=== PATIENT | female | born 1995 | race African-American/Black ===

== ENCOUNTER 2024-09-03 02:16 | Emergency (ER) | payer BC, SELFPAY ==
--- OUTSIDE RECORDS SUMMARY | 2024-09-03 02:19 | XMS_ITS | Clinical Summary ---
Author Organization [facility] Address [address] [place] [address] Care Team Providers Care Senior Genetic Counselor Name Role Phone Unavailable Primary Care Provider Unavailabl e Social History Tobacco Use Types Packs/Day Years Used Date Smoking Tobacco: Never Assessed Comments Unknown Sex and Gender Information Value Date Recorded Sex Assigned at Not on file Legal Sex Female 10:04 AM CDT Gender Identity Not on file Sexual Orientation Not on file Plan of Treatment Health Maintenance Due Date Last Done Comments Hepatitis C Virus (HCV) Screening 1993 Pap Smear 2014 Cervical Cancer Screening (CCS) 11/11/2023 HPV/Cotest 11/11/2023 Influenza Immunization (#1) 2023 SARS-COV-2 Immunization ( season) 2023 Respiratory Syncytial Virus (RSV) Immunization (Adult) (1 - 1-dose 75+ series) 2068 Hepatitis B Immunization Completed 995, 01/29/1994, 1993 DTaP/Tdap/Td Immunization Discontinued 2016, 12/07/2001, 09/03/1998, Additional history exists TdaP Immunization Completed 06/02/2016 Meningococcal Immunization (ACWY) Aged Out No longer eligible based on patient's age to complete this topic Pneumococcal Immunization Combined Aged Out No longer eligible based on patient's age to complete this topic Rotavirus Immunization Aged Out No lo nger eligible based on patient's age to complete this topic
--- OUTSIDE RECORDS SUMMARY | 2024-09-03 02:19 | XMS_ITS | Clinical Summary ---
Author Organization [facility] Address [address] [place] [address] Care Team Providers Care Travel Ot Name Role Phone Jamie Pena MD Primary Care Provider [phone] Allergies No known active allergies Medications No known medications Family History Medical History Relation Comments Cancer Father Stroke Mother Relation Status Comments Father Mother Social History Tobacco Use Types Packs/Day Years Used Date Smoking Tobacco: Never Passive Smoke Exposure: Never Smokeless Tobacco: Never Tobacco Cessation:Counseling Given: Not Answered Alcohol Use Standard Drinks/Week Comments Yes 0 (1 standard drink = 0.6 oz pur e alcohol) socially Comments Unknown Sex and Gender Information Value Date Recorded Sex Assigned at Not on file Legal Sex Female 7:53 PM CDT Gender Identity Not on file Sexual Orientation Not on file Last Filed Vital Signs Vital Sign Reading Time Taken Comments Blood Pressure 120/83 03/27/2022 1:14 PM LEGAL INTERNSHIP Pulse 80 03/27/2022 1:14 PM LEGAL INTERNSHIP Temperature 36.9 C (98.5 F) 03/27/2022 1:14 PM LEGAL INTERNSHIP Respiratory Rate 16 03/27/2022 1:14 PM LEGAL INTERNSHIP Oxygen Saturation 100% 03/27/2022 1:14 PM LEGAL INTERNSHIP Inhaled Oxygen Concentration - - Weight 59 kg (130 lb) 03/27/2022 1:14 PM LEGAL INTERNSHIP Height 157.5 cm (5' 2 ) 03/27/2022 1:14 PM LEGAL INTERNSHIP Body Mass Index 23.78 03/27/2022 1:14 PM LEGAL INTERNSHIP Plan of Treatment Health Maintenance Due Date Last Done Comments Cervical Cancer Screening Pa p Smear (Age 30 to 64) Every 3 Years 1993 Annual Physical 1996 Hepatitis C 11/11/2011 Hepatitis B Vaccines (1 of 3 - 19+ 3-dose series) 2012 Cervical Cancer Screening Pa p with HPV Testing (Age 30 to 64) Every 5 Years 11/11/2023 Cervical Cancer Screening with HPV 11/11/2023 COVID-19 Vaccine (1 - 2023-2 5 season) 2023 DTaP, Tdap and Td Vaccines ( 2 - Td or Tdap) 06/02/2026 06/02/2016 Pneumococcal Vaccine: Pediat rics (0 to 5 Years) and At-Risk Patients (6 to 49 Years) Aged Out 03/16/2014 No longer eligi ble based on patient's age to complete this topic HPV Vaccines Aged Out No longer eligi ble based on patient's age to complete this topic Meningococcal B Vaccine Aged Out No l onger eligible based on patient's age to complete this topic Meningococcal Vaccine Aged Out No ky matthew eligible based on patient's age to complete this topic RSV Immunizations Under 20 Months Aged Out No longer eligible based on patient's age to complete this topic Insurance Care Teams Travel Ot Relationship Specialty Start Date End Date Jamie Pena MD PCP - General 12/14/15
--- OUTSIDE RECORDS SUMMARY | 2024-09-03 02:19 | XMS_ITS | Referral Summary ---
Author Organization [facility] Address [address] [place] [id number] Care Team Providers Care Infusion Rn Name Role Phone Jamie Pena MD Primary Care Provider [phone] Jamie Pena MD Unavailable [phone] Allergies No known active allergies Medications vit-iron fum-folic ac 28 mg iron- 800 mcg tablet 1 tablet 1 Active acetaminophen (TylenoL) 325 mg tablet 650 mg 9 Active albuterol HFA (PROVENTIL HFA,VENTOLIN HFA,PROAIR HFA) 90 mcg/actuation inhaler INHALE 2 PUFFS EVERY 4 HOURS BY INHALATION ROUTE. 1 Active HYDROXYprogeste eve, PF,,preg presv, (Orrick) 250 mg/mL (1 mL) oil Inject 1 mL (250 mg total) into the muscle as instructed every 7 days 4 mL 5 1 Active Additional Information Patient not taking.Reported on 12/04/2020 amoxicillin-cla vulanate (AUGMENTIN) 875-125 mg per tabletIndicatio ns:dental infection Take 1 tablet by mouth every 12 (twelve) hours 14 tablet 3 Active lidocaine viscous (XYLOCAINE) 2 % solutionIndicat ions:Mouth Irritation Apply 10 mL to the mouth or throat 3 (three) times a day as needed (for mouth/dental pain) 100 mL 3 Active naproxen (NAPROSYN) 500 mg tablet Take 1 tablet (500 mg total) by mouth 2 (two) times a day with meals 30 tablet 3 Active chlorhexidine (PERIDEX) 0.12 % solution Apply 15 mL to the mouth or throat 2 (two) times a day 120 mL 3 Active vit 21-jhuv-gchfr-d silva 27mg iron- 800 mcg-250 mg capsule Take by mouth Active acetaminophen 500 mg capsule Take 2 capsules (1,000 mg total) by mouth every 6 (six) hours as needed for pain 80 tablet 4 Active docusate sodium (COLACE) 100 mg capsuleIndicati ons:constipatio n,Stool Softener Take 1 capsule (100 mg total) by mouth 2 (two) times a day 20 capsule 4 Active ibuprofen (ADVIL,MOTRIN) 600 mg tabletIndicatio ns:Cramps Take 1 tablet (600 mg total) by mouth every 6 (six) hours as needed for pain 40 tablet 4 Active ketorolac (TORADOL) 10 mg tablet Take 1 tablet (10 mg total) by mouth every 6 (six) hours as needed for pain 20 tablet 4 Active cyclobenzaprine (FLEXERIL) 10 mg tablet Take 1 tablet (10 mg total) by mouth 2 (two) times a day as needed for muscle spasms 20 tablet 4 Active Active Problems Problem Noted Date Diagnosed Date Third trimester 10/17/2023 Supervision of other normal , antepartu m 11/14/2020 Subclinical hyperthyroidism 11/14/2020 History of delivery 11/14/2020 Resolved Problems Problem Noted Date Diagnosed Date Resolved Date Well woman exam 11/01/2020 11/14/2020 Missed menses 11/01/2020 11/14/2020 Social History Tobacco Use Types Packs/Day Years Used Date Smoking Tobacco: Never Smokeless Tobacco: Never Tobacco Cessation:Counseling Given: Not Answered AUDIT-C Answer Date Recorded Q1: How often do you have a drink containing alcohol? Never 10/17/2023 Q2: How many drinks containi ng alcohol do you have on a typical day when you are drinking? Patient does not drink 4 Q3: How often do you have si x or more drinks on one occasion? Never 10/17/2023 Overall Financial Resource Strain (CARDIA) Kime r Date Recorded How hard is it for you to pa y for the very basics like food, housing, medical care, and heating? Not hard at all 10/17/2023 Hunger Vital Sign Answer Date Recorded Within the past 12 months, y ou worried that your food would run out before you got the money to buy more. Never true 10/17/19 24 Within the past 12 months, t he food you bought just didn't last and you didn't have money to get more. Never true 10/17/2023 PRAPARE - Transportation Answer Date Re corded In the past 12 months, has l ack of transportation kept you from medical appointments or from getting medications? No 09/19 In the past 12 months, has l ack of transportation kept you from meetings, work, or from getting things needed for daily living? No 10/17/2023 [place] Depression Scale Answer Date Recorded [place] Depression Scale Total 0 10/18/2023 The thought of harming myself has occurred to me . Never 10/18/2023 Housing Stability Vital Sign Answer Ashok e Recorded In the last 12 months, was t here a time when you were not able to pay the mortgage or rent on time? No 10/17/2023 Number of Times Moved in the Last Year Not on fi le 10/17/2023 At any time in the past 12 m [facility], were you homeless or living in a [facility] (including now)? No 10/17/2023 Personal Safety Answer Date Recorded Have you ever been in or are you currently in a harmful physical or emotional relationship or is someone making you feel afraid or unsafe? Denies 04/03/2024 Comments No Sex and Gender Information Value Date Recorded Sex Assigned at Not on file Legal Sex Female 9:11 PM SENIOR RELIABILITY ENGINEER Gender Identity Female 10/19/2023 10:22 AM CDT Sexual Orientation Not on file Last Filed Vital Signs Vital Sign Reading Time Taken Comments Blood Pressure 126/70 04/03/2024 9:40 AM SENIOR RELIABILITY ENGINEER Pulse 77 04/03/2024 9:40 AM SENIOR RELIABILITY ENGINEER Temperature 36.8 C (98.2 F) 04/03/2024 9:40 AM SENIOR RELIABILITY ENGINEER Respiratory Rate 24 04/03/2024 9:40 AM SENIOR RELIABILITY ENGINEER Oxygen Saturation 100% 04/03/2024 9:40 AM SENIOR RELIABILITY ENGINEER Inhaled Oxygen Concentration - - Weight 64 kg (141 lb) 10/17/2023 4:24 AM CDT Height 157.5 cm (5' 2 ) 10/17/2023 4:24 AM CDT Body Mass Index 25.79 10/17/2023 4:24 AM CDT Plan of Treatment Not on file Procedures Procedure Name Priority Date/Time Associated Diagnosis Comments HEPATITIS C ANTIBODY Routine 11/01/2020 5:34 PM CDT Missed menses from Last 3 Months or Most Recently Relevant to Health Maintenance Results * Hepatitis C antibody (11/01/2020 5:34 PM CDT) Hep C Ab Nonreactive Nonreactive ESTEFANI Comment: Interpretive Data Nonreactive: Antibodies to HCV not detected. Does NOT exclude the possibility of recent exposure to HCV. Equivocal: Equivocal for HCV antibodies. Supplemental molecular testing will be automatically performed to determine infection status in accordance with current CDC screening recommendations. Reactive: Positive for HCV antibodies. This may represent current or past HCV infection. Supplemental molecular testing will be automatically performed to determine current infection status in accordance with current CDC screening recommendations. Interpretive data was last revised on 2019. Blood specimen (specimen) 11/01/2020 5:34 PM CDT 11/01/2020 8:28 PM CDT Latonia Kendrick MD LAB MICROBIOLOGY - GENERAL ORD ERABLES Final Result [facility] [address] [place] [address] from Last 3 Months or Most Recently Relevant to Health Maintenance [facility] Advance Directives For more information, please contact: [phone] * Full Code (Latest Code Status on File) Date Activated Date Inactivated Comments 10/17/2023 3:52 AM 10/18/2023 8:25 PM * Full Code Date Activated Date Inactivated Comments 10/17/2023 3:13 AM 10/17/2023 3:52 AM Full CPR in case of cardiopulmonary arrest Care Teams Infusion Rn Relationship Specialty Start Date End Date Jamie Pena MD PCP - General Family Practice 11/15/21 Jamie Pena MD 11/15/21
--- OUTSIDE RECORDS SUMMARY | 2024-09-03 02:19 | XMS_ITS | Clinical Summary ---
Author Organization [facility] Address [address] [place] [address] Care Team Providers Care Dedicated Regional Driver Name Role Phone Unavailable Primary Care Provider Unavailabl e Source Comments [facility],non-owned Affiliates and Associated Physician Practices is amultiple site organization consisting of ambulatory clinics and hospital sitesin [place], [place], [place] and [place]. This disclosure is being madepursuant to the Care Everywhere program and may not contain all information available regarding this patient. Last updated 18.[facility] Allergies No known active allergies Medications * Be aware that medications may not be up to date on this document. Alwaysverify current medications with the patient. albuterol HFA (PROAIR HFA) 108 (90 BASE) MCG/ACT inhalerIndicati ons:Asthma Inhale 2 (two) puffs by mouth every 6 hours as needed for Shortness of Breath or Wheezing Reasons: Asthma Active Fakqjzgm-Odq-Ur -FA ( VITAMINS) 0.8 MG TABS Take 1 Tab by mouth once daily. 30 Tab 11 4 Active Progesterone 200 MG capsule Insert vaginally every night until 36 weeks of . 110 capsule 1 Active Additional Information Patient not taking.Reported on 07/08/2023 Progesterone 100 MG capsule Take 200 mg by mouth at bedtime Active ferrous sulfate 325 (65 FE) MG tabletIndicatio ns:Iron Deficiency Anemia Take 1 (one) tablet by mouth daily with breakfast Reasons: Anemia From Inadequate Iron in the Body Active aspirin EC (Ecotrin) 81 MG tablet Take 1 (one) tablet by mouth once daily Active Active Problems Problem Noted Date Diagnosed Date Fifth 12/03/2020 Encounter for ultrasound 11/27/2020 Herpes 11/27/2020 History of delivery, currently 11/26/2020 Late care 11/26/2020 Asthma 03/12/2014 Resolved Problems Problem Noted Date Diagnosed Date Resolved Date Third 11/27/2020 12/03/2020 Supervision of high-risk 03/12/2014 11/27/2020 Overview (03/12/2014): Dating L=7 week US per ACOG O+/I/-/-, NR GC/CT neg Caricella Immune CF and Hg Electrophoresis negative neg 2nd trimester serum screen GCT 93 premature rupture of membranes (PPROM) delivered, current hospitalization 03/12/2014 11/26/2020 Overview (03/12/2014): Suspected 03/10, presented 03/12 Trichomoniasis 03/12/2014 11/26/2020 Overview (03/12/2014): Current Immunizations Immunization Administration Dates Next Due PNEUMOCOCCAL PPSV23 03/16/2014 Family History Medical History Relation Name Comments Cancer - Lung Father CVA Mother Cancer - Lung Mother Relation Name Status Comments Father Mother Social History Tobacco Use Types Packs/Day Years Used Date Smoking Tobacco: Former Smokeless Tobacco: Never Tobacco Cessation:Counseling Given: Not Answered Alcohol Use Standard Drinks/Week Comments No 0 (1 standard drink = 0.6 oz pur e alcohol) Comments No Sex and Gender Information Value Date Recorded Sex Assigned at Not on file Legal Sex Female 10:07 AM CDT Gender Identity Not on file Sexual Orientation Not on file Last Filed Vital Signs Vital Sign Reading Time Taken Comments Blood Pressure 107/60 07/08/2023 2:19 PM CDT Pulse 86 07/08/2023 2:19 PM CDT Temperature 37.2 C (98.9 F) 09/10/2017 9:29 PM CDT Respiratory Rate 18 12/03/2020 2:07 PM CDT Oxygen Saturation 99% 09/10/2017 9:29 PM CDT Inhaled Oxygen Concentration - - Weight 67.8 kg (149 lb 8 oz) 07/08/2023 2:19 PM CDT Height 157.5 cm (5' 2 ) 07/08/2023 2:19 PM CDT Body Mass Index 27.34 07/08/2023 2:19 PM CDT Plan of Treatment Health Maintenance Due Date Last Done Comments PAP SMEAR 1993 HIV SCREENING 2008 HEPATITIS C SCREENING 11/06/2011 DTAP/TDAP/TD VACCINES (1 - Tdap) 2012 HEPATITIS B VACCINE (1 of 3 - 19+ 3-dose series) 2012 PNEUMOCOCCAL VACCINE (2 of 2 - PCV) 03/16/2015 03/16/2014 COVID-19 VACCINE (1 - 2023-2 5 season) 2023 DEPRESSION SCREENING 04/19/2024 INFLUENZA VACCINE (Season Ended) 2024 ZOSTER VACCINE (1 of 2) 11/11/2043 HIB VACCINE Aged Out No longer eligi ble based on patient's age to complete this topic HPV VACCINE Aged Out No longer eligi ble based on patient's age to complete this topic MENINGOCOCCAL (Group B) VACC INE SHARED DECISION-MAKING Aged Out No longer eligibl e based on patient's age to complete this topic MENINGOCOCCAL GROUPS A/C/Y/W VACCINE Aged Out No longer eligible b ased on patient's age to complete this topic Procedures Procedure Name Priority Date/Time Associated Diagnosis Comments CULTURE STREP B Routine 03/12/2014 8:28 PM ENTRY MANAGER Supervision of normal , third trimester from Last 3 Months or Most Recently Relevant to Health Maintenance Results * CULTURE STREP B (03/12/2014 8:28 PM ENTRY MANAGER) Culture Negative for Beta Hemolytic Streptococcus Group B ROSSANA 03/16/2014 8:18 AM ENTRY MANAGER [facility] MICROBIOLOGY Microbiology ENTIRE ENDOCERVIX / Unknown Collection / Unknown 03/12/2014 8:28 PM ENTRY MANAGER 03/12/2014 9:09 PM ENTRY MANAGER us Tia Gauthier MD LAB - MICROBIOLOGY ORDERABLES F inal Result [facility] MICROBIOLOGY [address] [place] [address], [facility] from Last 3 Months or Most Recently Relevant to Health Maintenance Insurance [facility] [employer] MEDICAID [facility] MEDICAID [employer] [place] [address] [place] [address] HEALTH PLAN [facility] [employer] * Guarantor: KIANA CUMMINS Type Relation to Patient Date of Phone Billing Address Personal/Family 2000 Advance Directives * Full Code (Latest Code Status on File) Date Activated Date Inactivated Comments 03/12/2014 7:38 PM 03/17/2014 1:12 PM
--- OUTSIDE RECORDS SUMMARY | 2024-09-03 02:19 | XMS_ITS | Clinical Summary ---
Author Organization [facility] Address [address] [place] [phone] Care Team Providers Care Adobe Maker Name Role Phone Jamie Pena MD Primary Care Provider [phone] Jamie Pena MD Unavailable [phone] Allergies No known active allergies Medications vit-iron fum-folic ac 28 mg iron- 800 mcg tablet 1 tablet 1 Active acetaminophen (TylenoL) 325 mg tablet 650 mg 9 Active albuterol HFA (PROVENTIL HFA,VENTOLIN HFA,PROAIR HFA) 90 mcg/actuation inhaler INHALE 2 PUFFS EVERY 4 HOURS BY INHALATION ROUTE. 1 Active HYDROXYprogeste eve, PF,,preg presv, (Rena Lara) 250 mg/mL (1 mL) oil Inject 1 [...] a day 120 mL 3 Active vit 59-ospg-ercjs-d silva 27mg iron- 800 mcg-250 mg capsule [...] exam 11/01/2020 11/14/2020 Missed menses 11/01/2020 11/14/2020 Medical History Medical History Date Comments Asthma Asthma inhaler prn Family History Medical History Relation Name Comments Lung cancer Mother Breast cancer Neg Hx Ovarian cancer Neg Hx Uterine cancer Neg Hx Relation Name Status Comments Mother Social History Tobacco Use Types Packs/Day [...] Never 10/17/2023 Overall Financial Resource Strain (CARDIA) Answe r Date Recorded How hard is it [...] things needed for daily living? No 10/17/2023 [place] Depression Scale Answer Date Recorded [place] Depression Scale Total 0 10/18/2023 The thought [...] any time in the past 12 m [facility], were you homeless or living in a alf (including now)? No 10/17/2023 Personal Safety Answer Date Recorded Have you ever been in or are you currently in a harmful physical or emotional relationship or is someone making you feel afraid or unsafe? Denies 04/03/2024 Comments No Sex and Gender Information Value Date Recorded Sex Assigned at Not on file Legal Sex Female 9:11 PM AIRCRAFT ENGINEER Gender Identity Female 10/19/2023 10:22 AM CDT Sexual Orientation Not on file Obstetrics History Para Term AB IAB SAB Ectopic Multiple Livin g Live Births 9 5 0 5 3 0 3 0 5 5 Date Outcome GA Total Labor Labor/2nd/3rd Weight Sex Type Anes PTL Lin A1 A5 Name Clin 2010 SAB 2013 30w 0d 2.041 kg (4 lb 8 oz) F Vag-Sp ont None Y Livin g Complications:Premature Rupt ure of Membranes Delivery Location:[place] 2013 34w 0d F Vag-Sp ont None Livin g Complications:None Delivery Location:[facility] 2016 32w 0d 2.098 kg (4 lb 10 oz) F Vag-Sp ont None Y Livin g Delivery Location:[facility] 2016 35w 0d F Vag-Sp ont None Livin g Complications:None Delivery Location:[place] 2018 SAB 2023 36w 2d 0h 14m 0h 10m/0h 04m 2.27 kg (5 lb 0.1 oz) F Vagina l None Y Livin g 8 9 GirlUn ique Salazar Casas MD Complications:None Delivery Location:[facility]) Last Filed Vital Signs Vital Sign Reading Time Taken Comments Blood Pressure 126/70 04/03/2024 9:40 AM AIRCRAFT ENGINEER Pulse 77 04/03/2024 9:40 AM AIRCRAFT ENGINEER Temperature 36.8 C (98.2 F) 04/03/2024 9:40 AM AIRCRAFT ENGINEER Respiratory Rate 24 04/03/2024 9:40 AM AIRCRAFT ENGINEER Oxygen Saturation 100% 04/03/2024 9:40 AM AIRCRAFT ENGINEER Inhaled Oxygen Concentration - - Weight 64 kg (141 lb) 10/17/2023 4:24 AM CDT Height 157.5 cm (5' 2 ) 10/17/2023 4:24 AM CDT Body Mass Index 25.79 10/17/2023 4:24 AM CDT Plan of Treatment Health Maintenance Due Date Last Done Comments Cervical Cancer Screening 1993 Varicella Vaccines (2 of 2 - 2-dose childhood series) 02/04/2005 11/12/2004 Pneumococcal vaccine <65 (2 of 2 - PCV) 03/16/2015 03/16/2014 Regular Well Visit/Exam 18-64 11/01/2021 11/01/2020 Depression Screening 10/17/2024 10/18/2023 Influenza Vaccine (Season Ended) 2024 02/24/2018, 02/19/2010 DTaP/Tdap/Td Vaccine (8 - Td or Tdap) 09/08/2030 09/08/2020, 06/02/2016, 12/07/2001, Additional history exists Hepatitis B Screening Completed 06/04/1994 , 01/29/1994, 1993 Hepatitis C Screening Completed 11/01/2020 HPV Vaccines Aged Out No longer eligi ble based on patient's age to complete this topic Procedures Procedure Name Priority Date/Time Associated Diagnosis Comments HEPATITIS C ANTIBODY Routine 11/01/2020 5:34 PM CDT Missed menses from Last 3 Months or Most Recently Relevant to Health Maintenance Results * Hepatitis C antibody (11/01/2020 5:34 PM CDT) Hep C Ab Nonreactive Nonreactive ESTEFANI KAMARA Comment: Interpretive Data Nonreactive: Antibodies to HCV [...] MICROBIOLOGY - GENERAL ORD ERABLES Final Result [facility] [address] [place] [address] from Last 3 Months or Most Recently Relevant to Health Maintenance Insurance [employer] [facility] Advance Directives For more information, please contact: [phone] * Full Code (Latest Code Status on File) Date Activated Date Inactivated Comments 10/17/2023 3:52 AM 10/18/2023 8:25 PM * Full Code Date Activated Date Inactivated Comments 10/17/2023 3:13 AM 10/17/2023 3:52 AM Full CPR in case of cardiopulmonary arrest Care Teams Adobe Maker Relationship Specialty Start Date End Date Jamie Pena MD PCP - General Family Practice 11/15/21 Jamie Pena MD 11/15/21
[2024-09-03 02:21] VITALS: BP 119/60; PULSE 81; RESP 18; TEMP 36.4; O2SAT 99
[2024-09-03 03:11] LABS: BEDSIDEPREGUCG Negative (Negative)
[2024-09-03 03:22] LABS: Add Urine Microscopic? YES; Appearance Urine Turbid (Clear); Bacteria Urine Rare /hpf; Bilirubin Urine Negative (Negative); Blood Urine 3+ (Negative); Color Urine Yellow (Yellow); Glucose Urine UA Negative (Negative); Ketones Urine 1+ mg/dL (Negative); Leukocyte Esterase Ur 3+ LEU/UL (Negative); Nitrate Urine Negative (Negative); Non Pathogenic Casts 0-2; Protein Urine 3+ mg/dL (Negative); RBC Urine >100 /hpf (0-2); Specific Grav Ur 1.028 (1.001-1.035); Squamous Epithelial Cell Urine Occasional /hpf (Few); WBC Urine >100 /hpf (0-3); pH Urine 5.5 (5.0-9.0)
--- NOTE | 2024-09-03 03:35 | ED.FEMALEGU ---
HPI - Female Genitourinary General Chief complaint: Urogenital-Female Stated complaint: bladder infection Time Seen by Provider: 09/03/24 02:39 History of Present Illness HPI Narrative: Yesterday patient noticed some slight discomfort with urination, did not think anything of it and today when she noticed some blood in her urine. She has no flank pain. This feels like a UTI, she has had them in the past but last 1 was 3 years ago Review of Systems Review of Systems: All systems reviewed & are unremarkable except as noted in HPI and below Exam Narrative: EXAMINATION OF ORGAN SYSTEMS/BODY AREAS: Constitutional: Vital signs per nursing GENERAL:[No acute distress, non-toxic appearing.] HEAD: Normal with no signs of head trauma. EYES: EOMI, conjunctiva normal ENT: Hearing grossly intact LUNGS: Nonlabored breathing. HEART: [Regular rate and rhythm] ABD: [Soft], slight suprapubic tenderness, no flank tenderness EXT: Normal range of motion SKIN: [No rashes or lesions.] NEURO: [Alert and oriented x 3. No gross focal sensory or strength deficits.] PSYCH: Normal affect Course Vital Signs Vital signs: Vital Signs Temperature 97.5 F L 09/03/24 02:21 Pulse Rate 81 09/03/24 02:21 Respiratory Rate 18 09/03/24 02:21 Blood Pressure 119/60 09/03/24 02:21 Pulse Oximetry 99 09/03/24 02:21 Temperature 97.5 F L 09/03/24 02:21 Pulse Rate 81 09/03/24 02:21 Respiratory Rate 18 09/03/24 02:21 Blood Pressure 119/60 09/03/24 02:21 Pulse Oximetry 99 09/03/24 02:21 MDM - Female Genitourinary MDM Narrative Medical decision making narrative: 28 year-old patient presenting with suprapubic pain and urinary symptoms consistent with UTI; no flank pain at all. Urinalysis is obtained and positive for signs of infection. Urine culture sent. [ test is negative.] Patient started on Macrobid and strongly advised to return for any increasing or worsening pain, fevers or vomiting, or flank pain. They expressed understanding of instructions and is discharged in stable condition. Lab Data Labs: Lab Results 09/03/24 09/03/24 Range/Units 03:09 03:10 Urine Color Yellow (Yellow) Urine Appearance Turbid H (Clear) Urine pH 5.5 (5.0-9.0) Ur Specific [place] 1.028 (1.001-1.035) Urine Protein 3+ H (Negative) mg/dL Urine Glucose (UA) Negative (Negative) mg/dL Urine Ketones 1+ H (Negative) mg/dL Ur Blood (Man) 3+ H (Negative) Urine Nitrate Negative (Negative) Urine Bilirubin Negative (Negative) Urine Urobilinogen 1.0 (<2.0) mg/dL Leukocyte Esterase Rfl 3+ H (Negative) BARRON/UL Urine RBC >100 H (0-2) /hpf Urine WBC >100 H (0-3) /hpf Ur Squamous Epith Cells Occasional (Few) /hpf Urine Bacteria Rare /hpf Urine Casts 0-2 POC Urine HCG, Qual Negative (Negative) Discharge Plan Discharge Clinical Impression: Urinary tract infection, Cystitis Patient Disposition: Home Condition: Stable Instructions: Urinary Tract Infection in Women (ED) Additional Instructions: Please take the antibiotics as prescribed and follow up with your doctor, you can always return to the hospital if you feel worse, especially if you have nausea/vomiting or flank pain. Patient Language: Swedish Prescriptions: New nitrofurantoin monohyd/m-cryst [Macrobid] 100 mg capsule 100 mg PO Q12H 7 Days Qty: 14 0RF Rx Instructions: must administer with a meal/food Follow-up/Referrals: Misael Tirado MD [Primary Care Provider] -
--- OUTSIDE RECORDS SUMMARY | 2024-09-03 03:35 | XMS_ITS | Clinical Summary ---
Author Organization [facility] Address [address] [place] [address] Care Team Providers Care Unit Operator Name Role Phone Jamie Pena MD Primary Care Provider [phone] Allergies No known active allergies Medications No [...] Comments Blood Pressure 120/83 03/27/2022 1:14 PM TRANSMISSION BUILDER Pulse 80 03/27/2022 1:14 PM TRANSMISSION BUILDER Temperature 36.9 C (98.5 F) 03/27/2022 1:14 PM TRANSMISSION BUILDER Respiratory Rate 16 03/27/2022 1:14 PM TRANSMISSION BUILDER Oxygen Saturation 100% 03/27/2022 1:14 PM TRANSMISSION BUILDER Inhaled Oxygen Concentration - - Weight 59 kg (130 lb) 03/27/2022 1:14 PM TRANSMISSION BUILDER Height 157.5 cm (5' 2 ) 03/27/2022 1:14 PM TRANSMISSION BUILDER Body Mass Index 23.78 03/27/2022 1:14 PM TRANSMISSION BUILDER Plan of Treatment Health Maintenance Due Date [...] to complete this topic Insurance Care Teams Unit Operator Relationship Specialty Start Date End Date Jamie Pena MD PCP - General 12/14/15
--- OUTSIDE RECORDS SUMMARY | 2024-09-03 03:35 | XMS_ITS | Clinical Summary ---
Author Organization [facility] Address [address] [place] [id number] Care Team Providers Care Internet Consultant Name Role Phone Jamie Pena MD Primary Care Provider [phone] Jamie Pena MD Unavailable [phone] Allergies No known active allergies Medications vit-iron fum-folic ac 28 mg iron- 800 mcg tablet 1 tablet 1 Active acetaminophen (TylenoL) 325 mg tablet 650 mg 9 Active albuterol HFA (PROVENTIL HFA,VENTOLIN HFA,PROAIR HFA) 90 mcg/actuation inhaler INHALE 2 PUFFS EVERY 4 HOURS BY INHALATION ROUTE. 1 Active HYDROXYprogeste eve, PF,,preg presv, ([place]) 250 mg/mL (1 mL) oil Inject 1 [...] a day 120 mL 3 Active vit 24-ztgx-pvksj-d silva 27mg iron- 800 mcg-250 mg capsule [...] things needed for daily living? 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 2016 32w 0d 2.098 kg (4 lb 10 oz) F Vag-Sp ont None Y Livin g Delivery Location:[facility] 2016 35w 0d F Vag-Sp ont None Livin g Complications:None Delivery Location:[facility] [place] 2018 SAB 2023 36w 2d 0h 14m 0h 10m/0h 04m 2.27 kg (5 lb 0.1 oz) F Vagina l None Y Livin g 8 9 GirlUn ique Salazar Casas MD Complications:None Delivery Location:[facility] ([facility]) Last Filed Vital Signs Vital Sign Reading Time Taken Comments Blood Pressure 126/70 04/03/2024 9:40 AM WORKFORCE DEVELOPMENT VICE PRESIDENT Pulse 77 04/03/2024 9:40 AM WORKFORCE DEVELOPMENT VICE PRESIDENT Temperature 36.8 C (98.2 F) 04/03/2024 9:40 AM WORKFORCE DEVELOPMENT VICE PRESIDENT Respiratory Rate 24 04/03/2024 9:40 AM WORKFORCE DEVELOPMENT VICE PRESIDENT Oxygen Saturation 100% 04/03/2024 9:40 AM WORKFORCE DEVELOPMENT VICE PRESIDENT Inhaled Oxygen Concentration - - Weight 64 [...] GENERAL ORD ERABLES Final Result [facility] [address] [facility] [place] [address] from Last 3 Months or Most Recently Relevant to Health Maintenance Insurance [employer] [facility] Advance Directives For more information, please contact: [phone] * Full Code (Latest Code Status on File) Date Activated Date Inactivated Comments 10/17/2023 3:52 AM 10/18/2023 8:25 PM * Full Code Date Activated Date Inactivated Comments 10/17/2023 3:13 AM 10/17/2023 3:52 AM Full CPR in case of cardiopulmonary arrest Care Teams Internet Consultant Relationship Specialty Start Date End Date Jamie Pena MD PCP - General Family Practice 11/15/21 Jamie Pena MD 11/15/21
--- OUTSIDE RECORDS SUMMARY | 2024-09-03 03:35 | XMS_ITS | Clinical Summary ---
Author Organization [facility] Address [address] [place] [address] Care Team Providers Care Grading Machine Operator Name Role Phone Unavailable Primary Care Provider [...]
--- OUTSIDE RECORDS SUMMARY | 2024-09-03 03:35 | XMS_ITS | Referral Summary ---
Author Organization [facility] Address [address] [place] [id number] Care Team Providers Care Aircraft Technician Name Role Phone Jamie Pena MD Primary Care Provider [phone] Jamie Pena MD Unavailable [phone] Allergies No known active allergies Medications vit-iron fum-folic ac 28 mg iron- 800 mcg tablet 1 tablet 1 Active acetaminophen (TylenoL) 325 mg tablet 650 mg 9 Active albuterol HFA (PROVENTIL HFA,VENTOLIN HFA,PROAIR HFA) 90 mcg/actuation inhaler INHALE 2 PUFFS EVERY 4 HOURS BY INHALATION ROUTE. 1 Active HYDROXYprogeste eve, PF,,preg presv, ([place]) 250 mg/mL (1 mL) oil Inject 1 [...] a day 120 mL 3 Active vit 40-zxls-imrzp-d silva 27mg iron- 800 mcg-250 mg capsule [...] things needed for daily living? No 10/17/2023 [place] Depression Scale Answer Date Recorded [place] Depression Scale Total 0 10/18/2023 The thought [...] any time in the past 12 m [facility], were you homeless or living in a intermediate (including now)? No 10/17/2023 Personal Safety Answer Date Recorded Have you ever been in or are you currently in a harmful physical or emotional relationship or is someone making you feel afraid or unsafe? 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[employer] Gender Identity Female 10/19/2023 10:22 AM CDT Sexual Orientation Not on file Last Filed Vital Signs Vital Sign Reading Time Taken Comments Blood Pressure 126/70 04/03/2024 9:40 AM EMBOSSING PRESS OPERATOR [employer] Pulse 77 04/03/2024 9:40 AM EMBOSSING PRESS OPERATOR [employer] Temperature 36.8 C (98.2 F) 04/03/2024 9:40 AM EMBOSSING PRESS OPERATOR [employer] Respiratory Rate 24 04/03/2024 9:40 AM EMBOSSING PRESS OPERATOR [employer]OLDED [employer] Oxygen Saturation 100% 04/03/2024 9:40 AM EMBOSSING PRESS OPERATOR [employer]OLDED [employer] Inhaled Oxygen Concentration - - Weight 64 [...] MICROBIOLOGY - GENERAL ORD ERABLES Final Result [facility] [address] [facility] Department [place] [address] from Last 3 Months or Most Recently Relevant to Health Maintenance [facility] Advance Directives For more information, please contact: [phone] * Full Code (Latest Code Status on File) Date Activated Date Inactivated Comments 10/17/2023 3:52 AM 10/18/2023 8:25 PM * Full Code Date Activated Date Inactivated Comments 10/17/2023 3:13 AM 10/17/2023 3:52 AM Full CPR in case of cardiopulmonary arrest Care Teams Aircraft Technician Relationship Specialty Start Date End Date Jamie ePna MD PCP - General Family Practice 11/15/21 Jamie Pena MD 11/15/21
--- OUTSIDE RECORDS SUMMARY | 2024-09-03 03:35 | XMS_ITS | Clinical Summary ---
Author Organization [facility] Address [address] [facility] [place] [address] Care Team Providers Care Supervisor Opening And Picking Name Role Phone Unavailable Primary Care Provider Unavailabl e Source Comments [facility],non-owned Affiliates and Associated Physician Practices is amultiple site organization consisting of ambulatory clinics and hospital sitesin [place], [place], [place] and [place]. This disclosure is being madepursuant to the Care Everywhere program and may not contain all information available regarding this patient. Last updated 18.[facility] Allergies No known active allergies Medications * Be aware that medications may not be up to date on this document. Alwaysverify current medications with the patient. albuterol HFA (PROAIR HFA) 108 (90 BASE) MCG/ACT inhalerIndicati ons:Asthma Inhale 2 (two) puffs by mouth every 6 hours as needed for Shortness of Breath or Wheezing Reasons: Asthma Active Cyomszdr-Oiu-Cm -FA ( VITAMINS) 0.8 MG TABS Take [...] CULTURE STREP B Routine 03/12/2014 8:28 PM CHAIRMAN Supervision of normal , third trimester from Last 3 Months or Most Recently Relevant to Health Maintenance Results * CULTURE STREP B (03/12/2014 8:28 PM CHAIRMAN) Culture Negative for Beta Hemolytic Streptococcus Group B ROSSANA 03/16/2014 8:18 AM CHAIRMAN [facility] Microbiology ENTIRE ENDOCERVIX / Unknown Collection / Unknown 03/12/2014 8:28 PM CHAIRMAN 03/12/2014 9:09 PM CHAIRMAN us Tia Gauthier MD LAB - MICROBIOLOGY ORDERABLES F inal Result [facility] [address] [place] [address], [facility] from Last 3 Months or Most Recently Relevant to Health Maintenance Insurance [facility] [employer] [facility] [employer] [place] [address] [place] [address] HEALTH [place] [address] * Guarantor: KIANA CUMMINS Type Relation to Patient Date of Phone Billing Address Personal/Family 2000 Advance Directives * Full Code (Latest Code Status on File) Date Activated Date Inactivated Comments 03/12/2014 7:38 PM 03/17/2014 1:12 PM
[2024-09-03] MEDS: NITROFURANTOIN MONOHYD MACROCR 100 MG CAP PO (04:34)
== END 2024-09-03 04:43 | disposition home or self-care (01) ==
LOC: ANHED 03:33
PROVIDERS: Emergency Provider Emergency Medicine; PCP Internal Medicine
DX: N30.90 Cystitis, unspecified without hematuria (principal)
CPT/HCPCS: 81001; 81025; 87086; 87186; 99283; A9270